=== PATIENT | female | born 1950 | race Caucasian/White ===

== ENCOUNTER 2017-06-15 01:43 | Emergency (ER) | payer MEDICARE, OTHER ==
[2017-06-15] MEDS ORDERED: Lidocaine 1% 20 ML MDV INJECT ONE (02:23)
[2017-06-15] MEDS ORDERED: Ciprofloxacin 0.3% Ophth Soln 2.5 ML Bottle ONE (02:23)
[2017-06-15] MEDS ORDERED: cefTRIAXone 1 GM Vial IVPUSH SCH (02:30)
--- NOTE | 2017-06-15 02:30 | EDM.PDOC ---
ED HPI GENERAL MEDICAL PROBLEM - General Chief Complaint: Eye Problems Stated Complaint: EYE AND EAR PAIN Time Seen by Provider: 06/15/17 02:16 Source of Information: Reports: Patient History Limitations: Reports: No Limitations - History of Present Illness INITIAL COMMENTS - FREE TEXT/NARRATIVE: Patient presents to the ED this am with complaints of right ear pain and pink eye. States has had cold symptoms now since Tuesday. Started noting pressure in her ear about 8 pm but since midnight has gotten much worse. Eye has been progressively getting worse all day, tearing constantly. Now lids are swollen and it is more sore and itchy. No fevers, mild cough. Does have sinus congestion and pressure as well. Took Tylenol earlier at home for the discomfort but it hasn't helped all that well. Onset: Gradual Duration: Hour(s): Location: Reports: Head Quality: Reports: Throbbing Severity: Severe Improves with: Reports: None Associated Symptoms: Reports: Cough. Denies: Chest Pain, Fever/Chills, Headaches, Nausea/Vomiting, Shortness of Breath Treatments [employer] W[employer]ER: Reports: Acetaminophen Right Ear Pain Score (Numeric/FACES): 9 - Related Data Allergies Allergy/AdvReac Type Severity Reaction Status Date / Time alcohol Allergy Rash Verified 06/15/17 01:51 codeine Allergy Stomach Verified 06/15/17 01:51 Ache ibuprofen Allergy Other Verified 06/15/17 01:55 meperidine [From Demerol] Allergy Hives Verified 06/15/17 01:51 dyes Allergy Stomach Uncoded 06/15/17 01:55 Ache Home Meds: Home Meds Cefuroxime [Ceftin] 250 mg PO BID #20 tablet 06/15/17 [Rx] Flecainide Acetate 150 mg PO BID 06/15/17 [History] Hydrochlorothiazide 25 mg PO DAILY 06/15/17 [History] Metoprolol Succinate [Toprol XL] 50 mg PO BID 06/15/17 [History] Past Medical History HEENT History: Reports: Cataract Cardiovascular History: Reports: Arrhythmia, Hypertension Gastrointestinal History: Reports: GERD, PUD Musculoskeletal History: Reports: Back Pain, Chronic, Fibromyalgia, Osteoarthritis Psychiatric History: Reports: Depression - Past Surgical History HEENT Surgical History: Reports: Cataract Surgery Cardiovascular Surgical History: Reports: Cardiac Ablation GI Surgical History: Reports: Cholecystectomy, EGD, Stacia Fundoplication Female Surgical History: Reports: Tubal Ligation Musculoskeletal Surgical History: Reports: Arthroscopic Knee, Other (See Below) Other Musculoskeletal Surgeries/Procedures:: nerve block done on her back about a year ago. Social & Family History - Tobacco Use Smoking Status *Q: Never Smoker ED ROS GENERAL - Review of Systems Review Of Systems: See Below Constitutional: Reports: Fatigue. Denies: Fever, Chills, Malaise, Weakness, Decreased Appetite HEENT: Reports: Ear Pain, Eye Discharge, Eye Pain, Rhinitis, Sinus Problem. Denies: Ear Discharge, Throat Pain, Throat Swelling Respiratory: Reports: Cough. Denies: Shortness of Breath, Sputum Cardiovascular: Denies: Chest Pain, Edema, Lightheadedness Endocrine: Reports: Fatigue GI/Abdominal: Reports: No Symptoms : Reports: No Symptoms Musculoskeletal: Reports: No Symptoms Skin: Reports: No Symptoms Neurological: Reports: No Symptoms ED EXAM GENERAL W FULL EYE - Physical Exam Exam: See Below Exam Limited By: No Limitations General Appearance: Alert, WD/WN, No Apparent Distress Eye Exam: Bilateral Eye: PERRL Eyelids: Right: Edema, Erythema Conjunctiva & Sclera: Right: Injected Pupils: Normal Accommodation Ears: Normal External Exam, Other (erythema noted to right TM, canal mildly red as well) Nose: Nasal Drainage (purulent nasal congestion) Throat/Mouth: Normal Inspection, Normal Oropharynx Head: Normocephalic Neck: Normal Inspection, Supple, Non-Tender Respiratory/Chest: No Respiratory Distress, Lungs Clear, Normal Breath Sounds Cardiovascular: Regular Rate, Rhythm Neurological: Alert, Oriented Skin Exam: Warm, Dry Course - Vital Signs Last Recorded V/S: Last Vital Signs Temp 98.6 F 06/15/17 01:43 Pulse 73 06/15/17 01:43 Resp 16 06/15/17 01:43 BP 143/93 H 06/15/17 01:43 Pulse Ox 93 L 06/15/17 01:43 - Orders/Labs/Meds Orders: Active Orders 24 hr Category Date Time Status Ciprofloxacin [Ciloxan 0.3% Ophth Soln] Med 06/15/17 08:00 Ordered See Dose Instructions EYERT TID cefTRIAXone [Rocephin] Med 06/15/17 02:30 Ordered 1 gm IVPUSH Q24H Medication Orders Ceftriaxone Sodium (Rocephin) 1 gm IVPUSH Q24H [facility] Ciprofloxacin (Ciloxan 0.3% Ophth Soln) 0 ml EYERT TID [facility] Meds: Medications Generic Name Dose Route Start Last Admin Trade Name Vero PRN Reason Stop Dose Admin Ceftriaxone Sodium 1 gm 06/15/17 02:30 Rocephin IVPUSH Q24H [facility] Ciprofloxacin 0 ml 06/15/17 08:00 Ciloxan 0.3% Ophth Soln EYERT TID [facility] Discontinued Medications Generic Name Dose Route Start Last Admin Trade Name Vero PRN Reason Stop Dose Admin Lidocaine HCl 20 ml 06/15/17 02:23 Xylocaine 1% INJECT 06/15/17 02:24 ONETIME ONE - Re-Assessments/Exams Free Text/Narrative Re-Assessment/Exam: 06/15/17 02:30 patient offered Toradol injection but declined, worries about allergies. Will continue to take Tylenol at home. Departure - Departure Time of Disposition: 02:28 Disposition: Home, Self-Care 01 Condition: Good Clinical Impression: Conjunctivitis Qualifiers: Conjunctivitis type: acute Acute conjunctivitis type: bacterial Laterality: right Qualified Code(s): H10.31 - Unspecified acute conjunctivitis, right eye Right otitis media Qualifiers: Chronicity: acute - Discharge Information Prescriptions: Cefuroxime [Ceftin] 250 mg PO BID #20 tablet Forms: ED Department Discharge Additional Instructions: 1. Rest 2. Push fluids 3. Tylenol for pain 4. Ceftin 250 mg twice a day for 10 days 5. Fill Diflucan as needed 6. Ciloxan 0.3% 3 drops to the right eye 3 times per day 7. Follow up with your primary care provider if ongoing concerns - My Orders Last 24 Hours: My Active Orders 06/15/17 02:30 cefTRIAXone [Rocephin] 1 gm IVPUSH Q24H 06/15/17 08:00 Ciprofloxacin [Ciloxan 0.3% Ophth Soln] See Dose Instructions EYERT TID - Assessment/Plan Last 24 Hours: My Active Orders 06/15/17 02:30 cefTRIAXone [Rocephin] 1 gm IVPUSH Q24H 06/15/17 08:00 Ciprofloxacin [Ciloxan 0.3% Ophth Soln] See Dose Instructions EYERT TID
[2017-06-15] MEDS ORDERED: Ciprofloxacin 0.3% Ophth Soln 2.5 ML Bottle EYERT SCH (08:00)
== END 2017-06-15 02:55 | disposition home or self-care (01) ==
LOC: CC.ED 01:43
DX: H66.91 Otitis media, unspecified, right ear (principal); H10.31 Unspecified acute conjunctivitis, right eye; I10 Essential (primary) hypertension; Z79.899 Other long term (current) drug therapy; Z88.5 Allergy status to narcotic agent; Z88.6 Allergy status to analgesic agent; Z91.048 Other nonmedicinal substance allergy status
CPT/HCPCS: 96372; 99282; J0696; 99283

== ENCOUNTER 2017-10-27 12:30 | Emergency (ER) | payer MEDICARE, OTHER ==
--- NOTE | 2017-10-27 13:33 | EDM.PDOC ---
ED HPI GENERAL MEDICAL PROBLEM - General Chief Complaint: Upper Extremity Injury/Pain Stated Complaint: POSSIBLE BROKEN WRIST Time Seen by Provider: 10/27/17 13:05 Source of Information: Reports: Patient History Limitations: Reports: No Limitations - History of Present Illness INITIAL COMMENTS - FREE TEXT/NARRATIVE: Pt was walking on the snow and slipped and fell on the ice. Is having pain to the wrist area of the right side. Minimal amount of swelling noted. Good sensation noted distally. Good sensation noted. Onset: Sudden Location: Reports: Upper Extremity, Right Quality: Reports: Throbbing Severity: Moderate Associated Symptoms: Reports: No Other Symptoms Right Wrist Pain Score (Numeric/FACES): 10 - Related Data Allergies Allergy/AdvReac Type Severity Reaction Status Date / Time acetaminophen [From Tylenol] Allergy Vomiting Verified 10/27/17 12:53 alcohol Allergy Rash Verified 10/27/17 12:53 codeine Allergy Stomach Verified 10/27/17 12:53 Ache ibuprofen Allergy Other Verified 10/27/17 12:53 meperidine [From Demerol] Allergy Hives Verified 10/27/17 12:53 dyes Allergy Stomach Uncoded 06/15/17 01:55 Ache tumeric Allergy Itching Uncoded 10/27/17 12:55 Home Meds: Home Meds Flecainide Acetate 150 mg PO BID 06/15/17 [History] Hydrochlorothiazide 25 mg PO DAILY 06/15/17 [History] Metoprolol Succinate [Toprol XL] 50 mg PO BID 06/15/17 [History] Fish Oil/Moro-3 Fatty Acids [Fish Oil] 2 each PO DAILY 10/27/17 [History] Past Medical History HEENT History: Reports: Cataract Cardiovascular History: Reports: Arrhythmia, Hypertension Gastrointestinal History: Reports: GERD, PUD Musculoskeletal History: Reports: Back Pain, Chronic, Fibromyalgia, Osteoarthritis Psychiatric History: Reports: Depression - Past Surgical History HEENT Surgical History: Reports: Cataract Surgery Cardiovascular Surgical History: Reports: Cardiac Ablation GI Surgical History: Reports: Cholecystectomy, EGD, Stacia Fundoplication Female Surgical History: Reports: Tubal Ligation Musculoskeletal Surgical History: Reports: Arthroscopic Knee, Other (See Below) Other Musculoskeletal Surgeries/Procedures:: nerve block done on her back about a year ago. Social & Family History - Tobacco Use Smoking Status *Q: Never Smoker - Caffeine Use Caffeine Use: Reports: Coffee Review of Systems - Review of Systems Review Of Systems: See Below Respiratory: Reports: No Symptoms Cardiovascular: Reports: No Symptoms GI/Abdominal: Reports: No Symptoms Musculoskeletal: Reports: Joint Pain, Joint Swelling Neurological: Reports: No Symptoms ED EXAM, GENERAL - Physical Exam Exam: See Below Exam Limited By: No Limitations General Appearance: Alert, Moderate Distress Respiratory/Chest: No Respiratory Distress, Lungs Clear, Normal Breath Sounds Cardiovascular: Regular Rate, Rhythm Extremities: Normal Inspection, Limited Range of Motion (to the wrist of the right. some swelling noted. Good sensation noted distally. Pulse strong distally.) Neurological: Alert, Oriented Skin Exam: Warm, Dry, Intact Course - Vital Signs Last Recorded V/S: Last Vital Signs Temp 98.1 F 10/27/17 12:57 Pulse 51 L 10/27/17 12:57 Resp 16 10/27/17 12:57 BP 116/86 10/27/17 12:57 Pulse Ox 97 10/27/17 12:57 - Orders/Labs/Meds Orders: Active Orders 24 hr Category Date Time Status Wrist Comp Min 3V Rt [CR] Stat Exams 10/27/17 12:57 Taken Departure - Departure Time of Disposition: 13:28 Disposition: Home, Self-Care 01 Condition: Good Clinical Impression: Right wrist sprain Qualifiers: Encounter type: initial encounter Qualified Code(s): S63.501A - Unspecified sprain of right wrist, initial encounter Fall due to ice or snow Qualifiers: Encounter type: initial encounter Qualified Code(s): W00.9XXA - Unspecified fall due to ice and snow, initial encounter - Discharge Information Additional Instructions: Ice to wrist if any swelling noted Rest wrist If it hurts don't lift it Tylenol or advil as needed for discomfort Recheck in the clinic if any concerns noted. - Problem List & Annotations (1) Fall due to ice or snow SNOMED Code(s): 357170178 Code(s): W00.9XXA - UNSPECIFIED FALL DUE TO ICE AND SNOW, INITIAL ENCOUNTER Status: Acute Priority: High Qualifiers: Encounter type: initial encounter Qualified Code(s): W00.9XXA - Unspecified fall due to ice and snow, initial encounter (2) Right wrist sprain SNOMED Code(s): 27300877 Code(s): S63.501A - UNSPECIFIED SPRAIN OF RIGHT WRIST, INITIAL ENCOUNTER Status: Acute Priority: High Qualifiers: Encounter type: initial encounter Qualified Code(s): S63.501A - Unspecified sprain of right wrist, initial encounter - Problem List Review Problem List Initiated/Reviewed/Updated: Yes - My Orders Last 24 Hours: My Active Orders 10/27/17 12:57 Wrist Comp Min 3V Rt [CR] Stat - Assessment/Plan Last 24 Hours: My Active Orders 10/27/17 12:57 Wrist Comp Min 3V Rt [CR] Stat
== END 2017-10-27 13:40 | disposition home or self-care (01) ==
LOC: CC.ED 12:30
DX: S63.501A Unspecified sprain of right wrist, initial encounter (principal); I10 Essential (primary) hypertension; K21.9 Gastro-esophageal reflux disease without esophagitis; Z88.8 Allergy status to other drugs, medicaments and biological substances; Z88.5 Allergy status to narcotic agent; Z91.048 Other nonmedicinal substance allergy status; Z91.018 Allergy to other foods; Z79.899 Other long term (current) drug therapy; W00.9XXA Unspecified fall due to ice and snow, initial encounter
CPT/HCPCS: 73110-RT; 99283